=== PATIENT | male | born 1935 | race Two or more races ===

== ENCOUNTER 2020-06-18 17:46 | Inpatient (IN) | payer OTHER ==
[~2020-06-18] VITALS: Ht 177.8 cm; Wt 84.8 kg
[2020-06-18 18:50] LABS: MONOCYTES # (AUTO) 0.5 K/uL (2.0-10.0); NEUTROPHILS # (AUTO) 1.4 K/uL (1.8-8.9); NEUTROPHILS % (AUTO) 63.8 % (38.5-71.5); WHITE BLOOD COUNT (AUTO) 2.2 K/uL (3.6-10.2)
[2020-06-18 18:57] LABS: BASOPHILS % (AUTO) 0.3 % (0.0-2.0); HEMATOCRIT 43.4 % (36.7-47.1); HEMOGLOBIN 14.6 g/dL (12.5-16.3); LYMPHOCYTES # (AUTO) 0.3 K/uL (20.0-40.0); LYMPHOCYTES % (AUTO) 14.8 % (20.5-51.5); MEAN CORPUSCULAR HEMOGLOBIN 29.9 uug (23.8-33.4); MEAN CORPUSCULAR HGB CONC 34 g/dL (32.5-36.3); MEAN CORPUSCULAR VOLUME 88.6 fL (73.0-96.2); MONOCYTES % (AUTO) 21.1 % (0.0-11.0); PLATELET COUNT (AUTO) 150 K/uL (152-348)
[2020-06-18 18:58] LABS: CREATININE 1.2 mg/dL (0.6-1.3); POTASSIUM 3.6 mmol/L (3.5-5.1)
[2020-06-18 19:15] LABS: BILIRUBIN,TOTAL 0.7 mg/dL (0.2-1.0); TOTAL PROTEIN, SERUM 6.5 g/dL (6.4-8.2)
[2020-06-18] MEDS ORDERED: MULT1CAP34 PO (19:45)
[2020-06-18] MEDS ORDERED: CYAN10009 PO (19:45)
[2020-06-18] MEDS ORDERED: FINA5TAB3 PO (19:45)
[2020-06-18] MEDS ORDERED: GABA600T PO (19:45)
[2020-06-18] MEDS ORDERED: LOSA100T3 PO (19:45)
[2020-06-18] MEDS ORDERED: TAMS-3 PO (19:45)
[2020-06-18 20:14] LABS: LYMPHOCYTES % (MANUAL) 17 % (20-40); MONOCYTES % (MANUAL) 23 % (2-10); NEUTROPHILS % (MANUAL) 60 % (42-75)
[2020-06-18] MEDS ORDERED: CEFTRIAXONE 1 G in IV DEXTROSE 5% 50 ML IV ONE (20:30)
[2020-06-18] MEDS ORDERED: AZITHROMYCIN IV 500 MG in IV DEXTROSE 5% 250 ML IV ONE (20:30)
[2020-06-18] MEDS ORDERED: CEFTRIAXONE /D5W 50ML IVPB **ER PYXIS IV ONE (20:46)
[2020-06-18] MEDS ORDERED: AZITHROMYCIN 500MG/ D5W 250ML IVPB **ER PYXIS ONLY IV ONE (21:13)
[2020-06-18 21:31] LABS: ABG BASE EXCESS 2.4 mmol/L; ABG HCO3 25.8 mmol/L; ABG PCO2 36.1 mmHg (35.0-45.0); ABG PH 7.472 (7.350-7.450); ABG PO2 87.3 mmHg (75.0-100.0); ABG SITE RIGHT RADIAL; ABG TOTAL HEMOGLOBIN 14.2 G/dL (13.5-18.0); COHb 0.9 % (0.5-1.5); MetHb 0.1 % (0.0-1.5); O2Hb 95.9 % (94.0-97.0); VENT MODE Nasal Cannula
[2020-06-18 21:38] LABS: *BILIRUBIN,URIN NEGATIVE (NEGATIVE); *BLOOD, URINE 2+ (NEGATIVE); *CLARITY,URINE CLOUDY (CLEAR); *COLOR,URINE YELLOW (YELLOW); *KETONES,URINE 1+ (NEGATIVE); *UROBILINOGEN,URINE 0.2 E.U./dl (NORMAL); LEUKOCYTE ESTERASE ,URINE NEGATIVE (NEGATIVE); NITRITE, URINE NEGATIVE (NEGATIVE); UGLUCOSE NEGATIVE (NEGATIVE)
[2020-06-18 23:03] LABS: BACTERIA,URINE MANY /HPF (NONE SEEN); SQUAMOUS EPITHELIAL CELL,UR FEW /HPF (NONE SEEN); WBC,URINE 20-50 /HPF (0-3)
--- NOTE | 2020-06-19 00:43 | NUR ---
Pt. admitted to Telemetry, under care of Dr. Darshan Machado. Diagnosis: Pneumonia/Respiratory Insufficiency Belongs List completed
--- NOTE | 2020-06-19 02:10 | NUR ---
Patient transferred upstairs to 3rd floor.
[2020-06-19 02:15] VITALS: BP 147/75
--- NOTE | 2020-06-19 02:15 | NUR ---
Received pt from ED via gurnadia. No s/s of acute distress noted. Pt on 5L NC with SpO2 @ 93%, denies SOB. desk monitor in place. Left wrist IV patent and in place. Bed locked and low. Safety measures and isolation precautions in place.
[2020-06-19] MEDS ORDERED: ACETAMINOPHEN 325 MG TABLET PO PRN (05:00)
[2020-06-19] MEDS ORDERED: ONDANSETRON 4 MG/2 ML VIAL IV PRN ×2 (05:00→05:30)
[2020-06-19] MEDS ORDERED: DEXTROSE 50% 50 ML DISP.SYRIN IV PRN (05:30)
[2020-06-19] MEDS ORDERED: MORPHINE SULFATE 2 MG/1 ML DISP.SYRIN IV PRN (05:30)
[2020-06-19] MEDS: PANTOPRAZOLE SODIUM 40 MG TABLET.DR PO SCH (06:24)
[2020-06-19] MEDS: BLOOD SUGAR DIAGNOSTIC 1 EACH STRIP VI SCH ×4 (07:00→21:41)
--- NOTE | 2020-06-19 07:45 | NUR ---
Received PT in bed, awake AO X 3. Can be forgetful, but easily redirected. PT is cooperative and pleasant. Makes needs known to staff and interacts with staff when engaged to. No acute distress or SOB noted. Nurse encourages PT to drink fluids and eat meals. Safety measures provided, call light within reach, bed low and lock. Will continue to monitor.
[2020-06-19 09:14] LABS: BASOPHILS % (AUTO) 0.1 % (0.0-2.0); HEMATOCRIT 42.9 % (36.7-47.1); HEMOGLOBIN 14.1 g/dL (12.5-16.3); LYMPHOCYTES # (AUTO) 0.5 K/uL (20.0-40.0); MEAN CORPUSCULAR HEMOGLOBIN 29.3 uug (23.8-33.4); MEAN CORPUSCULAR HGB CONC 33 g/dL (32.5-36.3); MEAN CORPUSCULAR VOLUME 89.2 fL (73.0-96.2); MONOCYTES # (AUTO) 0.4 K/uL (2.0-10.0); MONOCYTES % (AUTO) 18.1 % (0.0-11.0); NEUTROPHILS # (AUTO) 1.5 K/uL (1.8-8.9); NEUTROPHILS % (AUTO) 61.8 % (38.5-71.5); PLATELET COUNT (AUTO) 152 K/uL (152-348); RED BLOOD CELL COUNT(AUTO) 4.81 MIL/uL (4.06-5.63); WHITE BLOOD COUNT (AUTO) 2.4 K/uL (3.6-10.2)
[2020-06-19 09:50] LABS: CREATININE 1.1 mg/dL (0.6-1.3); POTASSIUM 3.5 mmol/L (3.5-5.1)
[2020-06-19 10:02] LABS: BILIRUBIN,TOTAL 0.5 mg/dL (0.2-1.0); PHOSPHOROUS 3.2 mg/dL (2.5-4.9)
[2020-06-19] MEDS: DEXAMETHASONE SOD PHOSPHATE 10 MG INJ IV SCH (10:26)
[2020-06-19] MEDS: LOSARTAN POTASSIUM 50 MG TABLET PO SCH (10:27)
[2020-06-19] MEDS: FINASTERIDE 5 MG TABLET PO SCH (10:27)
[2020-06-19] MEDS: GABAPENTIN 300 MG CAPSULE PO SCH (10:27)
[2020-06-19] MEDS: MULTIVITAMINS,THERAPEUTIC TABLET PO SCH (10:27)
[2020-06-19] MEDS: Z GUARD REMEDY PASTE 57 GM TUBE TOP SCH ×2 (10:28→21:03)
[2020-06-19] MEDS: CYANOCOBALAMIN 1,000 MCG TABLET PO SCH (10:28)
[2020-06-19] MEDS: ENOXAPARIN SODIUM 40 MG/0.4 ML DISP.SYRIN SQ SCH (10:30)
[2020-06-19 10:40] LABS: THYROID STIMULATING HORMONE 2.101 mIU/mL (0.358-3.740)
[2020-06-19 11:50] VITALS: BP 128/77
[2020-06-19] MEDS: INSULIN REGULAR, HUMAN 300 UNIT/3 ML VIAL SQ PRN ×2 (12:01→16:42)
[2020-06-19 16:00] VITALS: BP 135/77
--- NOTE | 2020-06-19 18:28 | NUR ---
PT in bed, awake AO X 3 with safety measures. Nurse encouraged PT during dinner to finish meal. 50% consumed but completed all fluids on tray. No acute distress or SOB noted. Vitals documented. No complain of pain noted at this time. PT resting in bed. Safety measures provided, call light within reach, bed low and lock. Will endorse to religious educator nurse
[2020-06-19 18:32] LABS: BAND % (MANUAL) 5 % (0-10); LYMPHOCYTES % (MANUAL) 21 % (20-40); MONOCYTES % (MANUAL) 19 % (2-10); NEUTROPHILS % (MANUAL) 55 % (42-75)
--- NOTE | 2020-06-19 19:30 | NUR ---
Pt received sleeping in bed. Does not appear to be in pain or have any respiratory distress at this time. On 15L nonrebreather. SR on monitor. No other issues or concerns at this time.
[2020-06-19 20:15] VITALS: BP 113/58
[2020-06-19] MEDS: CEFTRIAXONE 1 G in IV DEXTROSE 5% 50 ML IV SCH (21:07)
[2020-06-19] MEDS: TAMSULOSIN HCL 0.4 MG CAP.SR.24H PO SCH (21:07)
[2020-06-19] MEDS: AZITHROMYCIN IV 500 MG in IV DEXTROSE 5% 250 ML IV SCH (22:14)
[2020-06-20 00:18] VITALS: BP 114/61
[2020-06-20 04:15] VITALS: BP 116/61
[2020-06-20] MEDS: PANTOPRAZOLE SODIUM 40 MG TABLET.DR PO SCH (06:17)
[2020-06-20] MEDS: BLOOD SUGAR DIAGNOSTIC 1 EACH STRIP VI SCH ×4 (06:32→21:22)
--- NOTE | 2020-06-20 06:41 | NUR ---
Pt slept throughout the night. Denies pain or SOB. On 15L nonrebreather sating at 97%. Safety and comfort provided throughout the night. No other issues or concerns at this time. Will endorse to day shift.
[2020-06-20 06:52] LABS: BASOPHILS % (AUTO) 0.2 % (0.0-2.0); HEMATOCRIT 41.6 % (36.7-47.1); HEMOGLOBIN 13.7 g/dL (12.5-16.3); LYMPHOCYTES # (AUTO) 0.5 K/uL (20.0-40.0); LYMPHOCYTES % (AUTO) 16.9 % (20.5-51.5); MEAN CORPUSCULAR HEMOGLOBIN 29.7 uug (23.8-33.4); MEAN CORPUSCULAR HGB CONC 33 g/dL (32.5-36.3); MEAN CORPUSCULAR VOLUME 90.4 fL (73.0-96.2); MONOCYTES # (AUTO) 0.4 K/uL (2.0-10.0); MONOCYTES % (AUTO) 14.4 % (0.0-11.0); NEUTROPHILS # (AUTO) 1.9 K/uL (1.8-8.9); NEUTROPHILS % (AUTO) 68.5 % (38.5-71.5); PLATELET COUNT (AUTO) 178 K/uL (152-348); WHITE BLOOD COUNT (AUTO) 2.8 K/uL (3.6-10.2)
[2020-06-20 07:30] LABS: CREATININE 1.1 mg/dL (0.6-1.3); POTASSIUM 3.6 mmol/L (3.5-5.1)
--- NOTE | 2020-06-20 07:50 | NUR ---
Received PT in bed, awake AO X 3. Can be forgetful, but easily redirected. PT is cooperative and pleasant. Makes needs known to staff and interacts with staff when engaged to. No acute distress or SOB noted. PT needs encouragement to drink fluids and eat meals. Safety measures provided, call light within reach, bed low and lock. Will continue to monitor.
[2020-06-20] MEDS: DEXAMETHASONE SOD PHOSPHATE 10 MG INJ IV SCH (08:34)
[2020-06-20] MEDS: CYANOCOBALAMIN 1,000 MCG TABLET PO SCH (08:36)
[2020-06-20] MEDS: GABAPENTIN 300 MG CAPSULE PO SCH (08:36)
[2020-06-20] MEDS: FINASTERIDE 5 MG TABLET PO SCH (08:36)
[2020-06-20] MEDS: MULTIVITAMINS,THERAPEUTIC TABLET PO SCH (08:36)
[2020-06-20] MEDS: LOSARTAN POTASSIUM 50 MG TABLET PO SCH (08:39)
[2020-06-20] MEDS: ENOXAPARIN SODIUM 40 MG/0.4 ML DISP.SYRIN SQ SCH (08:41)
[2020-06-20] MEDS: Z GUARD REMEDY PASTE 57 GM TUBE TOP SCH ×2 (08:41→21:12)
[2020-06-20] MEDS: INSULIN REGULAR, HUMAN 300 UNIT/3 ML VIAL SQ PRN ×3 (08:42→21:25)
[2020-06-20 12:04] VITALS: BP 111/59
--- NOTE | 2020-06-20 12:30 | NUR ---
Nurse tried titrating PT on NC. Checked O2 saturation on NC 5L, saturating at 88%. Elevated HOB to high fowlers position. PT sitting up and comfortable in bed. Switched PT back on non-rebreather, saturating at 91%. Spoke with respiratory therapist, John to also monitor PT. Nurse continuing to monitor PT frequently. PT in bed, safety measures provided, call light within reach, bed low and lock
[2020-06-20 16:00] VITALS: BP 114/63
[2020-06-20 18:46] LABS: LYMPHOCYTES % (MANUAL) 15 % (20-40); MONOCYTES % (MANUAL) 15 % (2-10); NEUTROPHILS % (MANUAL) 70 % (42-75)
--- NOTE | 2020-06-20 18:46 | NUR ---
PT in bed, awake AO X 3 with safety measures. Nurse encouraged PT to finish dinner meal. 50% consumed from meal tray but consumed all fluids. No acute distress or SOB noted. Vitals documented. No complain of pain noted at this time. PT resting in bed. Safety measures provided, call light within reach, bed low and lock. Will endorse to line installation supervisor nurse
--- NOTE | 2020-06-20 19:30 | NUR ---
Pt received sleeping in bed. Does not appear to be in any acute distress. On 15L NR and tolerating well. Sating at 96%. Bed is locked and in lowest position. Call light is within reach. No other issues or concerns at this time.
[2020-06-20 20:53] VITALS: BP 106/60
[2020-06-20] MEDS: TAMSULOSIN HCL 0.4 MG CAP.SR.24H PO SCH (21:14)
[2020-06-20] MEDS: CEFTRIAXONE 1 G in IV DEXTROSE 5% 50 ML IV SCH (21:14)
[2020-06-20] MEDS: AZITHROMYCIN IV 500 MG in IV DEXTROSE 5% 250 ML IV SCH (22:19)
[2020-06-21 01:40] VITALS: BP 133/76
[2020-06-21 05:12] VITALS: BP 127/68
--- NOTE | 2020-06-21 06:17 | NUR ---
Pt slept throughout the night with no complaints. Denies pain or difficulty breathing. Sating at 93% at 5L. Safety and comfort provided. Call light is within reach. Will endorse to day shift.
[2020-06-21] MEDS: PANTOPRAZOLE SODIUM 40 MG TABLET.DR PO SCH (06:49)
[2020-06-21] MEDS: BLOOD SUGAR DIAGNOSTIC 1 EACH STRIP VI SCH ×4 (07:00→20:35)
--- NOTE | 2020-06-21 07:00 | NUR ---
Patient awake and able to make needs known. Patient on oxygen via non rebreather mask at 15LPM. Patient has an IV access on his left wrist, 20 gauge, patent and infusing well at 10mls/hr. No signs and symptoms of respiratory distress. Will monitor patient's condition through out the shift.
[2020-06-21 07:33] LABS: BASOPHILS % (AUTO) 0.1 % (0.0-2.0); HEMATOCRIT 43.5 % (36.7-47.1); HEMOGLOBIN 14.5 g/dL (12.5-16.3); LYMPHOCYTES # (AUTO) 0.4 K/uL (20.0-40.0); MEAN CORPUSCULAR HEMOGLOBIN 29.6 uug (23.8-33.4); MEAN CORPUSCULAR HGB CONC 33 g/dL (32.5-36.3); MONOCYTES # (AUTO) 0.5 K/uL (2.0-10.0); MONOCYTES % (AUTO) 13.1 % (0.0-11.0); NEUTROPHILS # (AUTO) 2.8 K/uL (1.8-8.9); NEUTROPHILS % (AUTO) 76.8 % (38.5-71.5); PLATELET COUNT (AUTO) 209 K/uL (152-348); RED BLOOD CELL COUNT(AUTO) 4.88 MIL/uL (4.06-5.63); WHITE BLOOD COUNT (AUTO) 3.6 K/uL (3.6-10.2)
[2020-06-21] MEDS: FINASTERIDE 5 MG TABLET PO SCH (08:51)
[2020-06-21] MEDS: GABAPENTIN 300 MG CAPSULE PO SCH (08:51)
[2020-06-21] MEDS: MULTIVITAMINS,THERAPEUTIC TABLET PO SCH (08:53)
[2020-06-21] MEDS: CYANOCOBALAMIN 1,000 MCG TABLET PO SCH (08:53)
[2020-06-21] MEDS: LOSARTAN POTASSIUM 50 MG TABLET PO SCH (09:00)
[2020-06-21] MEDS: Z GUARD REMEDY PASTE 57 GM TUBE TOP SCH ×2 (09:23→20:22)
[2020-06-21] MEDS: ENOXAPARIN SODIUM 40 MG/0.4 ML DISP.SYRIN SQ SCH (09:27)
--- NOTE | 2020-06-21 09:29 | NUR ---
Medication was not given. Blood pressure is 116/67 with no parameters. Will confirm with sports medicine trainer what parameters to follow.
[2020-06-21] MEDS: DEXAMETHASONE SOD PHOSPHATE 10 MG INJ IV SCH (09:33)
[2020-06-21] MEDS: INSULIN REGULAR, HUMAN 300 UNIT/3 ML VIAL SQ PRN ×4 (09:42→20:39)
[2020-06-21 12:18] VITALS: BP 103/52
[2020-06-21 16:22] VITALS: BP 112/52
--- NOTE | 2020-06-21 18:44 | NUR ---
Patient laying comfortably in bed, awake and able to make needs known. Still on 15LPM oxygen via non rebreather mask. HAs an IV access on Left wrist, patent and infusing well. All medications tolerated well. No signs and symptoms of distress. Laboratory called and informed that patient's Covid PCR test came out positive. Will endorse to night time babysitter nurse.
[2020-06-21] MEDS: TAMSULOSIN HCL 0.4 MG CAP.SR.24H PO SCH (20:21)
[2020-06-21] MEDS: CEFTRIAXONE 1 G in IV DEXTROSE 5% 50 ML IV SCH (20:21)
[2020-06-21 21:22] VITALS: BP 123/72
[2020-06-21] MEDS: AZITHROMYCIN IV 500 MG in IV DEXTROSE 5% 250 ML IV SCH (21:41)
--- NOTE | 2020-06-21 23:18 | NUR ---
Received pt resting in bed. AAO x3. On 15L NRB, no acute distress noted. C/o generalized mild pain, Tylenol PRN and other due meds given as ordered. Accucheck 143, insulin coverage given as per sliding scale. Safety measures maintained. Call light and personal items within reach. Will continue to monitor.
[2020-06-22 01:12] VITALS: BP 137/72
[2020-06-22] MEDS: PANTOPRAZOLE SODIUM 40 MG TABLET.DR PO SCH (06:22)
[2020-06-22] MEDS: BLOOD SUGAR DIAGNOSTIC 1 EACH STRIP VI SCH ×4 (06:38→21:35)
[2020-06-22 06:43] VITALS: BP 134/72
[2020-06-22] MEDS: INSULIN REGULAR, HUMAN 300 UNIT/3 ML VIAL SQ PRN ×3 (08:35→17:16)
[2020-06-22] MEDS: GABAPENTIN 300 MG CAPSULE PO SCH (08:58)
[2020-06-22] MEDS: MULTIVITAMINS,THERAPEUTIC TABLET PO SCH (08:58)
[2020-06-22] MEDS: CYANOCOBALAMIN 1,000 MCG TABLET PO SCH (08:58)
[2020-06-22] MEDS: FINASTERIDE 5 MG TABLET PO SCH (08:58)
[2020-06-22] MEDS: Z GUARD REMEDY PASTE 57 GM TUBE TOP SCH ×2 (08:59→21:36)
[2020-06-22] MEDS: LOSARTAN POTASSIUM 50 MG TABLET PO SCH (08:59)
[2020-06-22] MEDS: DEXAMETHASONE SOD PHOSPHATE 10 MG INJ IV SCH (08:59)
--- NOTE | 2020-06-22 09:00 | NUR ---
PATIENT IS AWAKE ALERT AND AWARE WITH LANGUAGE BARRIER BUT IS ABLE TO MAKE NEEDS KNOWN DENIES PAIN OR DISCOMFORTS AT THIS TIME.REMAIN ON NRM AT 15 LITERS WITH SAT AT 92-93 PERCENT NO SOB CALL LIGHTS AND PERSONAL BELONGINGS ARE WITHIN EASY REACH MADE COMFORTABLE WILL CONTINUE TO OBSERVE..
[2020-06-22] MEDS: ENOXAPARIN SODIUM 40 MG/0.4 ML DISP.SYRIN SQ SCH (09:01)
[2020-06-22 09:06] LABS: BASOPHILS % (AUTO) 0.1 % (0.0-2.0); HEMATOCRIT 42.3 % (36.7-47.1); HEMOGLOBIN 14.2 g/dL (12.5-16.3); LYMPHOCYTES # (AUTO) 0.3 K/uL (20.0-40.0); MEAN CORPUSCULAR HEMOGLOBIN 29.6 uug (23.8-33.4); MEAN CORPUSCULAR HGB CONC 34 g/dL (32.5-36.3); MEAN CORPUSCULAR VOLUME 88.1 fL (73.0-96.2); MONOCYTES # (AUTO) 0.6 K/uL (2.0-10.0); MONOCYTES % (AUTO) 12.2 % (0.0-11.0); NEUTROPHILS # (AUTO) 3.9 K/uL (1.8-8.9); NEUTROPHILS % (AUTO) 81.7 % (38.5-71.5); PLATELET COUNT (AUTO) 218 K/uL (152-348); WHITE BLOOD COUNT (AUTO) 4.8 K/uL (3.6-10.2)
[2020-06-22 09:16] LABS: BILIRUBIN,TOTAL 0.5 mg/dL (0.2-1.0); POTASSIUM 3.9 mmol/L (3.5-5.1); TOTAL PROTEIN, SERUM 5.5 g/dL (6.4-8.2)
[2020-06-22 12:00] VITALS: BP 137/73
[2020-06-22 16:00] VITALS: BP 136/71
--- NOTE | 2020-06-22 18:00 | NUR ---
DR BARTLETT HERE TO SEE PATIENT WITH NEW ORDERS ATTEMPTS TO TITRATE HIS O2 FAILED PATIENT TO REMAIN ON 15 LITERS NON REBREATHER NO S/S OF HYPO/HYPERGLYCEMIC REACTIONS AT THIS TIME.WILL CONTINUE TO OBSERVE.
[2020-06-22 20:00] VITALS: BP 136/67
[2020-06-22] MEDS ORDERED: REMDESIVIR (CHARGED) 200 MG in IV NORMAL SALINE 210 ML IV ONE (20:00)
--- NOTE | 2020-06-22 20:56 | NUR ---
PAtient awake alert and able to make needs known.TETLIN elevated noted with non rebreather mask at 15 % with O2 sat at 92 %.Denies pain , no acute distress noted at this time.Iv on left wrist patent and intact. Administered Remdesivir Iv as ordered no a/r noted. Rocephin and Zithromax IV given as well.Tolerated well.Continue on isolation for precaution.Safety measures in place.Will continue to monitor.VSS pre and post Remdesivir adm.
[2020-06-22] MEDS: TAMSULOSIN HCL 0.4 MG CAP.SR.24H PO SCH (21:36)
[2020-06-22] MEDS: CEFTRIAXONE 1 G in IV DEXTROSE 5% 50 ML IV SCH (22:11)
[2020-06-22] MEDS: AZITHROMYCIN IV 500 MG in IV DEXTROSE 5% 250 ML IV SCH (23:11)
[2020-06-23] VITALS: BP 122/88
[2020-06-23 04:00] VITALS: BP 139/74
--- NOTE | 2020-06-23 05:26 | NUR ---
Patient noted with O2 sat fluctuating from 87%- 84 % .Patient on non rebreather mask 15 LPm with c/o of difficulty breathing .Dr Sexton made aware with new order given STAT ABG and put Patient on high flow.Rt made aware. Will continue to monitor.
[2020-06-23 05:57] LABS: ABG BASE EXCESS 3.4 mmol/L; ABG HCO3 26.5 mmol/L; ABG PCO2 35.8 mmHg (35.0-45.0); ABG PH 7.487 (7.350-7.450); ABG PO2 42.5 mmHg (75.0-100.0); ABG SITE RIGHT RADIAL; ABG TOTAL HEMOGLOBIN 15.9 G/dL (13.5-18.0); MetHb 0.2 % (0.0-1.5); O2Hb 79.6 % (94.0-97.0)
[2020-06-23] MEDS: PANTOPRAZOLE SODIUM 40 MG TABLET.DR PO SCH (06:23)
[2020-06-23] MEDS: BLOOD SUGAR DIAGNOSTIC 1 EACH STRIP VI SCH ×4 (06:26→23:01)
--- NOTE | 2020-06-23 06:48 | NUR ---
Received ABG result and relayed to with O2 sat 90%-89% on high flow 40L FIO2 100% .Dr Sexton ordered to repeat ABG in 2 hours.Noted and carried out.Will endorsed to on coming shift.
[2020-06-23 07:56] LABS: BASOPHILS % (AUTO) 0.1 % (0.0-2.0); HEMATOCRIT 45.1 % (36.7-47.1); HEMOGLOBIN 15.3 g/dL (12.5-16.3); LYMPHOCYTES # (AUTO) 0.4 K/uL (20.0-40.0); LYMPHOCYTES % (AUTO) 6.7 % (20.5-51.5); MEAN CORPUSCULAR HEMOGLOBIN 29.8 uug (23.8-33.4); MEAN CORPUSCULAR HGB CONC 34 g/dL (32.5-36.3); MEAN CORPUSCULAR VOLUME 87.9 fL (73.0-96.2); MONOCYTES # (AUTO) 0.7 K/uL (2.0-10.0); MONOCYTES % (AUTO) 11.2 % (0.0-11.0); NEUTROPHILS # (AUTO) 5.2 K/uL (1.8-8.9); PLATELET COUNT (AUTO) 264 K/uL (152-348); RED BLOOD CELL COUNT(AUTO) 5.13 MIL/uL (4.06-5.63); WHITE BLOOD COUNT (AUTO) 6.4 K/uL (3.6-10.2)
[2020-06-23 08:04] LABS: BILIRUBIN,DIRECT 0.1 mg/dL (0.0-0.2); BILIRUBIN,TOTAL 0.6 mg/dL (0.2-1.0); TOTAL PROTEIN, SERUM 5.8 g/dL (6.4-8.2)
[2020-06-23 08:07] LABS: ABG BASE EXCESS 3.9 mmol/L; ABG HCO3 26.5 mmol/L; ABG PCO2 33.8 mmHg (35.0-45.0); ABG PH 7.512 (7.350-7.450); ABG PO2 52.1 mmHg (75.0-100.0); ABG SITE LEFT BRACHIAL; ABG TOTAL HEMOGLOBIN 15.2 G/dL (13.5-18.0); COHb 1.1 % (0.5-1.5); MetHb 0.3 % (0.0-1.5); O2Hb 87.2 % (94.0-97.0); VENT MODE HIGH FLOW
[2020-06-23 08:15] LABS: CREATININE 1.1 mg/dL (0.6-1.3); POTASSIUM 3.8 mmol/L (3.5-5.1)
[2020-06-23] MEDS: DEXAMETHASONE SOD PHOSPHATE 10 MG INJ IV SCH (08:26)
[2020-06-23] MEDS: GABAPENTIN 300 MG CAPSULE PO SCH (08:26)
[2020-06-23] MEDS: CYANOCOBALAMIN 1,000 MCG TABLET PO SCH (08:26)
[2020-06-23] MEDS: MULTIVITAMINS,THERAPEUTIC TABLET PO SCH (08:26)
[2020-06-23] MEDS: FINASTERIDE 5 MG TABLET PO SCH (08:26)
[2020-06-23] MEDS: LOSARTAN POTASSIUM 50 MG TABLET PO SCH (08:27)
[2020-06-23] MEDS: Z GUARD REMEDY PASTE 57 GM TUBE TOP SCH ×2 (08:27→22:55)
[2020-06-23] MEDS: ENOXAPARIN SODIUM 40 MG/0.4 ML DISP.SYRIN SQ SCH (08:30)
[2020-06-23] MEDS: INSULIN REGULAR, HUMAN 300 UNIT/3 ML VIAL SQ PRN ×3 (08:31→23:02)
--- NOTE | 2020-06-23 09:00 | NUR ---
DR DAVIS HERE SEEN PATIENT REVIEWED THE ABG REPORT WITH NO NEW ORDERS AT THIS TIME REMAIN ON NRM AND HI MUKESH O2 SATS AT 93 PERCENT ALERT VERBALLY RESPONSIVE TALKING MOSTLY IN BULGARIAN BUT DOES UNDERSTAND SOME UPPER SORBIAN MADE COMFORTABLE REMAIN ON COVID ISOLATION AND PRECAUTION NOT IN DISTRESS AT THIS TIME
[2020-06-23 11:04] VITALS: BP 131/72
--- NOTE | 2020-06-23 13:00 | NUR ---
PATIENT REMOVED HIS NASAL CANULLA AND THE NRM SEEM CONFUSED REAPPLIED AND PATIENT INSTRUCTED TO NOT REMOVE THE TUBINGS TO PREVENT RESTRAINTS FROM BEING USED SPOKE TO HIM WITH A SOFTWARE DEVELOPMENT ANALYST AND HE EXPRESSED UNDERSTAND.O2 SAT AT THIS TIME IS 82 PERCENT.
[2020-06-23 15:17] VITALS: BP 122/70
[2020-06-23] MEDS: ACETAMINOPHEN 325 MG TABLET PO PRN (17:21)
[2020-06-23 20:35] VITALS: BP 120/65
[2020-06-23] MEDS ORDERED: AZITHROMYCIN 250 MG TABLET PO SCH (21:00)
[2020-06-23] MEDS: REMDESIVIR (CHARGED) 100 MG in IV NORMAL SALINE 100 ML IV SCH (22:29)
[2020-06-23] MEDS: TAMSULOSIN HCL 0.4 MG CAP.SR.24H PO SCH (22:57)
[2020-06-23] MEDS: CEFTRIAXONE 1 G in IV DEXTROSE 5% 50 ML IV SCH (23:40)
[2020-06-24 00:36] VITALS: BP 144/75
[2020-06-24 04:00] VITALS: BP 141/56
[2020-06-24] MEDS: ACETAMINOPHEN 325 MG TABLET PO PRN (04:44)
[2020-06-24] MEDS: PANTOPRAZOLE SODIUM 40 MG TABLET.DR PO SCH (06:41)
[2020-06-24] MEDS: BLOOD SUGAR DIAGNOSTIC 1 EACH STRIP VI SCH ×4 (06:51→20:53)
[2020-06-24 07:59] LABS: BILIRUBIN,DIRECT 0.2 mg/dL (0.0-0.2); BILIRUBIN,TOTAL 0.6 mg/dL (0.2-1.0); TOTAL PROTEIN, SERUM 5.3 g/dL (6.4-8.2)
[2020-06-24] MEDS: CYANOCOBALAMIN 1,000 MCG TABLET PO SCH (08:57)
[2020-06-24] MEDS: DEXAMETHASONE SOD PHOSPHATE 10 MG INJ IV SCH (08:57)
[2020-06-24] MEDS: MULTIVITAMINS,THERAPEUTIC TABLET PO SCH (08:57)
[2020-06-24] MEDS: FINASTERIDE 5 MG TABLET PO SCH (08:57)
[2020-06-24] MEDS: GABAPENTIN 300 MG CAPSULE PO SCH (08:57)
[2020-06-24] MEDS: LOSARTAN POTASSIUM 50 MG TABLET PO SCH (08:58)
[2020-06-24] MEDS: Z GUARD REMEDY PASTE 57 GM TUBE TOP SCH ×2 (08:58→20:44)
[2020-06-24] MEDS: ENOXAPARIN SODIUM 40 MG/0.4 ML DISP.SYRIN SQ SCH (09:10)
--- NOTE | 2020-06-24 10:00 | NUR ---
PATIENT SEEN AND EXAMINED BY DR BHATT WITH NO NEW ORDERS CONTINUE ON HI FLOW O2 AND NRM ORDERED WITH NO SOB HE IS MORE ALERT TODAY FAIR APPETITE ALL NEEDS ANTICIPATED AND SATISFIED MAX ASSIST FOR ALL ADL REMAIN ON ISOLATION FOR COVID PNEUMONIA MADE COMFORTABLE WILL CONTINUE TO OBSERVE AND PROVIDE COMFORT.
[2020-06-24 11:38] VITALS: BP 139/77
[2020-06-24 16:00] VITALS: BP 139/70
[2020-06-24] MEDS: INSULIN REGULAR, HUMAN 300 UNIT/3 ML VIAL SQ PRN ×2 (16:51→20:58)
--- NOTE | 2020-06-24 18:00 | NUR ---
RESTING WITH O2 ORDERED HAS TENDENCY TO REMOVE THE HI FLOW GEO STATED BOTHERS HIS NOSE ENCOURAGED TO LEAVE IN PLACE ORDERED TO IMPROVE HIS SATURATION EXPRESSED UNDERSTANDING BUT WILL CONTINUE TO OBSERVE.
--- NOTE | 2020-06-24 19:42 | NUR ---
Pt in bed resting, denies SOB or pain at this time. On high flow oxygen. No distress noted. SR on monitor. Call light is within reach. No other issues or concerns at this time.
[2020-06-24 20:00] VITALS: BP 128/73
[2020-06-24] MEDS: REMDESIVIR (CHARGED) 100 MG in IV NORMAL SALINE 100 ML IV SCH (20:43)
[2020-06-24] MEDS: TAMSULOSIN HCL 0.4 MG CAP.SR.24H PO SCH (20:43)
[2020-06-24] MEDS: CEFTRIAXONE 1 G in IV DEXTROSE 5% 50 ML IV SCH (21:54)
[2020-06-25] VITALS: BP 120/69
[2020-06-25] MEDS: ACETAMINOPHEN 325 MG TABLET PO PRN (01:57)
--- NOTE | 2020-06-25 02:45 | NUR ---
Pt began sating at 83-85% on 40L high flow NC and 15L NR. There was an order for bipap. Called RT to place bipap on patient. Now sating at 94%. Denies SOB at this time. No other issues or concerns.
[2020-06-25] MEDS: PANTOPRAZOLE SODIUM 40 MG TABLET.DR PO SCH (06:07)
[2020-06-25] MEDS: BLOOD SUGAR DIAGNOSTIC 1 EACH STRIP VI SCH ×4 (06:37→22:16)
--- NOTE | 2020-06-25 06:40 | NUR ---
Pt slept intermittently throughout the night. Denies chest pain or SOB. Tolerating Bipap well, sating at 94%. SR on monitor. Bed is locked and in lowest position. Call light is within reach. No other issues or concerns at this time. Will endorse to day shift.
[2020-06-25 06:58] LABS: BASOPHILS % (AUTO) 0.1 % (0.0-2.0); HEMATOCRIT 41.7 % (36.7-47.1); HEMOGLOBIN 14.1 g/dL (12.5-16.3); LYMPHOCYTES # (AUTO) 0.3 K/uL (20.0-40.0); LYMPHOCYTES % (AUTO) 3.2 % (20.5-51.5); MEAN CORPUSCULAR HEMOGLOBIN 30.1 uug (23.8-33.4); MEAN CORPUSCULAR HGB CONC 34 g/dL (32.5-36.3); MONOCYTES # (AUTO) 0.4 K/uL (2.0-10.0); MONOCYTES % (AUTO) 4.4 % (0.0-11.0); NEUTROPHILS # (AUTO) 9.1 K/uL (1.8-8.9); NEUTROPHILS % (AUTO) 92.3 % (38.5-71.5); PLATELET COUNT (AUTO) 231 K/uL (152-348); RED BLOOD CELL COUNT(AUTO) 4.69 MIL/uL (4.06-5.63); WHITE BLOOD COUNT (AUTO) 9.9 K/uL (3.6-10.2)
[2020-06-25 07:27] LABS: BILIRUBIN,DIRECT 0.2 mg/dL (0.0-0.2); BILIRUBIN,TOTAL 0.7 mg/dL (0.2-1.0); MAGNESIUM 1.8 mg/dL (1.8-2.4); PHOSPHOROUS 2.6 mg/dL (2.5-4.9); POTASSIUM 3.9 mmol/L (3.5-5.1); TOTAL PROTEIN, SERUM 5.3 g/dL (6.4-8.2)
--- NOTE | 2020-06-25 07:30 | NUR ---
Received patient awake, alert and oriented times 4, no sign of distress noted at this time. Patient is on 2L of oxygen. Safety precautions are in place. Will continue to monitor.
[2020-06-25] MEDS: CYANOCOBALAMIN 1,000 MCG TABLET PO SCH (09:26)
[2020-06-25] MEDS: DEXAMETHASONE SOD PHOSPHATE 10 MG INJ IV SCH (09:26)
[2020-06-25] MEDS: MULTIVITAMINS,THERAPEUTIC TABLET PO SCH (09:26)
[2020-06-25] MEDS: FINASTERIDE 5 MG TABLET PO SCH (09:26)
[2020-06-25] MEDS: GABAPENTIN 300 MG CAPSULE PO SCH (09:26)
[2020-06-25] MEDS: Z GUARD REMEDY PASTE 57 GM TUBE TOP SCH ×2 (09:27→20:42)
[2020-06-25] MEDS: ENOXAPARIN SODIUM 40 MG/0.4 ML DISP.SYRIN SQ SCH (09:27)
[2020-06-25] MEDS: LOSARTAN POTASSIUM 50 MG TABLET PO SCH (09:34)
--- NOTE | 2020-06-25 10:00 | NUR ---
Patient was placed on high glow oxygen and nonrebreather to take medications and eat breakfast. Patient did not tolerate it well, had be put back on BIPAP. Patient is now back on BIPAP saturating from 95-100%. Will continue to monitor.
[2020-06-25 12:00] VITALS: BP 145/69
[2020-06-25] MEDS: INSULIN REGULAR, HUMAN 300 UNIT/3 ML VIAL SQ PRN ×2 (12:43→22:17)
[2020-06-25 16:00] VITALS: BP 121/67
--- NOTE | 2020-06-25 18:47 | NUR ---
Patient is resting in bed. No sign of distress noted at this time. Gave all medications as ordered. Patient is tolerating BIPAP well. safety precautions in place. Will endorse to the oncoming nurse.
[2020-06-25 20:18] VITALS: BP 131/75
[2020-06-25] MEDS: REMDESIVIR (CHARGED) 100 MG in IV NORMAL SALINE 100 ML IV SCH (20:41)
[2020-06-25] MEDS: TAMSULOSIN HCL 0.4 MG CAP.SR.24H PO SCH (20:42)
[2020-06-25] MEDS: CEFTRIAXONE 1 G in IV DEXTROSE 5% 50 ML IV SCH (22:15)
--- NOTE | 2020-06-25 22:30 | NUR ---
Received patient in bed, awake, alert and responsive. With BIPAP machine on, tolerated fairly. In no respiratory distress. Patient able to make needs known. Patient received due medications, tolerated well. Kept patient warm, dry, and comfortable. Will continue to monitor patient and attend and anticipate needs.
--- NOTE | 2020-06-26 02:00 | NUR ---
Patient woke up and requested for water. Provided as requested. Replaced on BIPAP after drinking. In no respiratory distress.
[2020-06-26 04:12] VITALS: BP 131/72
[2020-06-26] MEDS: PANTOPRAZOLE SODIUM 40 MG TABLET.DR PO SCH (06:35)
[2020-06-26] MEDS: BLOOD SUGAR DIAGNOSTIC 1 EACH STRIP VI SCH ×4 (06:48→20:50)
--- NOTE | 2020-06-26 07:30 | NUR ---
Received patient awake, alert and oriented times 4, no sign of distress noted at this time. Patient is on BIPAP and saturating at 93-95%. Patient is Syriac speaking but understands some Slovak. Safety precautions are in place. Will continue to monitor.
[2020-06-26 08:07] LABS: HEMATOCRIT 44.5 % (36.7-47.1); HEMOGLOBIN 14.8 g/dL (12.5-16.3); LYMPHOCYTES # (AUTO) 0.2 K/uL (20.0-40.0); LYMPHOCYTES % (AUTO) 1.7 % (20.5-51.5); MEAN CORPUSCULAR HEMOGLOBIN 29.6 uug (23.8-33.4); MEAN CORPUSCULAR HGB CONC 33 g/dL (32.5-36.3); MEAN CORPUSCULAR VOLUME 88.6 fL (73.0-96.2); MONOCYTES # (AUTO) 0.6 K/uL (2.0-10.0); MONOCYTES % (AUTO) 4.8 % (0.0-11.0); NEUTROPHILS # (AUTO) 12.1 K/uL (1.8-8.9); NEUTROPHILS % (AUTO) 93.5 % (38.5-71.5); PLATELET COUNT (AUTO) 190 K/uL (152-348); RED BLOOD CELL COUNT(AUTO) 5.02 MIL/uL (4.06-5.63); WHITE BLOOD COUNT (AUTO) 12.9 K/uL (3.6-10.2)
[2020-06-26 08:34] LABS: BILIRUBIN,DIRECT 0.3 mg/dL (0.0-0.2); BILIRUBIN,TOTAL 0.9 mg/dL (0.2-1.0); CREATININE 1.1 mg/dL (0.6-1.3); PHOSPHOROUS 2.7 mg/dL (2.5-4.9); POTASSIUM 4.1 mmol/L (3.5-5.1); TOTAL PROTEIN, SERUM 5.5 g/dL (6.4-8.2)
[2020-06-26] MEDS: GABAPENTIN 300 MG CAPSULE PO SCH (09:04)
[2020-06-26] MEDS: CYANOCOBALAMIN 1,000 MCG TABLET PO SCH (09:04)
[2020-06-26] MEDS: FINASTERIDE 5 MG TABLET PO SCH (09:04)
[2020-06-26] MEDS: DEXAMETHASONE SOD PHOSPHATE 10 MG INJ IV SCH (09:05)
[2020-06-26] MEDS: MULTIVITAMINS,THERAPEUTIC TABLET PO SCH (09:05)
[2020-06-26] MEDS: LOSARTAN POTASSIUM 50 MG TABLET PO SCH (09:10)
[2020-06-26] MEDS: Z GUARD REMEDY PASTE 57 GM TUBE TOP SCH ×2 (09:11→20:36)
[2020-06-26] MEDS: ENOXAPARIN SODIUM 40 MG/0.4 ML DISP.SYRIN SQ SCH (09:11)
[2020-06-26 10:22] LABS: ABG BASE EXCESS -1.6 mmol/L; ABG HCO3 22.6 mmol/L; ABG PCO2 36.5 mmHg (35.0-45.0); ABG PH 7.409 (7.350-7.450); ABG PO2 57.6 mmHg (75.0-100.0); ABG SITE RIGHT RADIAL; ABG TOTAL HEMOGLOBIN 14.7 G/dL (13.5-18.0); MetHb 0.2 % (0.0-1.5); O2Hb 89.4 % (94.0-97.0); VENT MODE BIPAP
[2020-06-26 11:38] VITALS: BP 115/68
[2020-06-26] MEDS: INSULIN REGULAR, HUMAN 300 UNIT/3 ML VIAL SQ PRN ×3 (13:20→20:42)
[2020-06-26] MEDS: ACETAMINOPHEN 325 MG TABLET PO PRN (15:01)
[2020-06-26 16:00] VITALS: BP 105/58
--- NOTE | 2020-06-26 18:30 | NUR ---
Patient is resting in bed. No sign of distress noted at this time. Gave all medications as ordered. Patient was saturating at 84%, called respiratory therapy to adjust mask and check setting, patient is now saturating at 97%. safety precautions in place. Will endorse to the oncoming nurse.
[2020-06-26 20:12] VITALS: BP 112/67
[2020-06-26] MEDS: TAMSULOSIN HCL 0.4 MG CAP.SR.24H PO SCH (20:36)
[2020-06-26] MEDS: REMDESIVIR (CHARGED) 100 MG in IV NORMAL SALINE 100 ML IV SCH (20:36)
[2020-06-27] VITALS (7 sets, daily range): BP systolic 124–153; BP diastolic 30–86
[2020-06-27] MEDS: PANTOPRAZOLE SODIUM 40 MG TABLET.DR PO SCH (06:24)
[2020-06-27] MEDS: BLOOD SUGAR DIAGNOSTIC 1 EACH STRIP VI SCH ×4 (06:33→21:28)
[2020-06-27 06:39] LABS: BASOPHILS % (AUTO) 0.3 % (0.0-2.0); CREATININE 1.1 mg/dL (0.6-1.3); EOSINOPHILS % (AUTO) 0.1 % (0.0-7.0); HEMATOCRIT 43.3 % (36.7-47.1); HEMOGLOBIN 14.5 g/dL (12.5-16.3); LYMPHOCYTES # (AUTO) 0.2 K/uL (20.0-40.0); LYMPHOCYTES % (AUTO) 1.6 % (20.5-51.5); MAGNESIUM 2.2 mg/dL (1.8-2.4); MEAN CORPUSCULAR HEMOGLOBIN 29.9 uug (23.8-33.4); MEAN CORPUSCULAR HGB CONC 34 g/dL (32.5-36.3); MEAN CORPUSCULAR VOLUME 89.2 fL (73.0-96.2); MONOCYTES # (AUTO) 0.7 K/uL (2.0-10.0); MONOCYTES % (AUTO) 4.8 % (0.0-11.0); NEUTROPHILS % (AUTO) 93.2 % (38.5-71.5); PHOSPHOROUS 2.6 mg/dL (2.5-4.9); PLATELET COUNT (AUTO) 147 K/uL (152-348); POTASSIUM 4.2 mmol/L (3.5-5.1); RED BLOOD CELL COUNT(AUTO) 4.86 MIL/uL (4.06-5.63); WHITE BLOOD COUNT (AUTO) 13.9 K/uL (3.6-10.2)
--- NOTE | 2020-06-27 07:00 | NUR ---
Received patient awake, alert and oriented times 4, no sign of distress noted at this time. Patient is on BIPAP Safety precautions are in place. Will continue to monitor.
[2020-06-27] MEDS: CYANOCOBALAMIN 1,000 MCG TABLET PO SCH (08:07)
[2020-06-27] MEDS: FINASTERIDE 5 MG TABLET PO SCH (08:07)
[2020-06-27] MEDS: MULTIVITAMINS,THERAPEUTIC TABLET PO SCH (08:07)
[2020-06-27] MEDS: GABAPENTIN 300 MG CAPSULE PO SCH (08:07)
[2020-06-27] MEDS: LOSARTAN POTASSIUM 50 MG TABLET PO SCH (08:07)
[2020-06-27] MEDS: DEXAMETHASONE SOD PHOSPHATE 10 MG INJ IV SCH (08:08)
[2020-06-27] MEDS: ENOXAPARIN SODIUM 40 MG/0.4 ML DISP.SYRIN SQ SCH (08:08)
[2020-06-27] MEDS: Z GUARD REMEDY PASTE 57 GM TUBE TOP SCH ×2 (09:30→20:07)
--- NOTE | 2020-06-27 10:00 | NUR ---
PT HEART RATE IS 145 BP IS 130/70/RESP 40 02 SAT IS 85 % MD MADE AWARE AND CALLED THE RAPID RESPOND NEW ORDERS RECEIVED AND NOTED
--- NOTE | 2020-06-27 10:10 | NUR ---
SUMNER SPEAK WITH THE PT DAUGHTER
--- NOTE | 2020-06-27 10:45 | NUR ---
PER MD ORDERS TURN THE PT TO HIS LEFT SIDE
[2020-06-27 10:48] LABS: ABG BASE EXCESS -1.8 mmol/L; ABG PCO2 34.8 mmHg (35.0-45.0); ABG PH 7.418 (7.350-7.450); ABG PO2 44.5 mmHg (75.0-100.0); ABG SITE LEFT BRACHIAL; ABG TOTAL HEMOGLOBIN 14.6 G/dL (13.5-18.0); COHb 1.1 % (0.5-1.5); MetHb 0.2 % (0.0-1.5); O2Hb 81.4 % (94.0-97.0); VENT MODE BIPAP
[2020-06-27] MEDS ORDERED: MORPHINE SULFATE 2 MG/1 ML DISP.SYRIN IV ONE (11:00)
--- NOTE | 2020-06-27 11:01 | NUR ---
PT IS SAYING HE CANNOT BREATH HE FEEL THE CHEST PRESSURE MD MADE AWARE
[2020-06-27] MEDS: INSULIN REGULAR, HUMAN 300 UNIT/3 ML VIAL SQ PRN ×3 (11:40→21:35)
--- NOTE | 2020-06-27 19:30 | NUR ---
Pt received in bed, resting. On bipap sating at 90%. Denies chest pain or discomfort and denies SOB at this time. SR on monitor. Call light is within reach and bed is locked and in lowest position. No other issues or concerns at this time.
[2020-06-27] MEDS: TAMSULOSIN HCL 0.4 MG CAP.SR.24H PO SCH (20:06)
--- NOTE | 2020-06-28 00:30 | NUR ---
Pt in minor distress. Was desating to 83-85%. RT was called and Dmitiry BILINGUAL MANAGER notified. Dmititry stated for pt to be intubated in ER. Was transferred to ER by myself and RT with bipap. Arrived in ER and patient was tachypneic and tachycardic at 115 bpm. Pt was intubated in ER and is now in transition unit.
[2020-06-28 00:46] VITALS: BP 149/76
[2020-06-28] MEDS ORDERED: MIDAZOLAM HCL 2 MG/2 ML VIAL ONE (00:55)
[2020-06-28] MEDS ORDERED: MIDAZOLAM HCL 2 MG/2 ML VIAL IV PRN (01:00)
[2020-06-28] MEDS ORDERED: SUCCINYLCHOLINE CHLORIDE 200 MG/10 ML VIAL IV ONE ×2 (01:00→13:25)
--- NOTE | 2020-06-28 01:03 | NUR ---
Patient was brought in from the 3rd floor to ED d/t hypoxia per primary nurse Mary. Patient was not tolerating bipap, ERMD aware
[2020-06-28] MEDS: PROPOFOL 100 ML IV PRN ×5 (01:10→01:30)
[2020-06-28] MEDS ORDERED: PROPOFOL 100 ML ONE ×6 (01:10→21:44)
--- NOTE | 2020-06-28 01:10 | NUR ---
Vent settings as follows: AC, TV600, RR14, Peep 5, ET tube 7.5 25cm at the lip
[2020-06-28] MEDS ORDERED: DILTIAZEM HCL 25 MG IV IV ONE (01:15)
--- NOTE | 2020-06-28 01:15 | NUR ---
Daughter Milly called and notified of patient's status.
[2020-06-28] MEDS ORDERED: DILTIAZEM HCL 25 MG IV ONE (01:17)
[2020-06-28] MEDS ORDERED: AMIODARONE HCL 150 MG/3 ML VIAL IV ONE ×2 (01:28→01:37)
[2020-06-28] MEDS: AMIODARONE HCL IV 150 MG in IV DEXTROSE 5% 100 ML IV ONE ×2 (01:30→01:37)
[2020-06-28] MEDS ORDERED: AMIODARONE HCL IV 900 MG in IV DEXTROSE 5% 500 ML IV ONE (01:30)
--- NOTE | 2020-06-28 01:40 | NUR ---
Amiodarone drip started at 0140
[2020-06-28] MEDS ORDERED: NOREPINEPHRINE BITARTRATE 8 MG in IV NORMAL SALINE 250 ML IV ONE (02:00)
[2020-06-28 02:01] LABS: ABG BASE EXCESS -3.7 mmol/L; ABG HCO3 24.1 mmol/L; ABG PCO2 54.6 mmHg (35.0-45.0); ABG PH 7.263 (7.350-7.450); ABG PO2 86.8 mmHg (75.0-100.0); ABG SITE RIGHT RADIAL; ABG TOTAL HEMOGLOBIN 15.1 G/dL (13.5-18.0); COHb 1.3 % (0.5-1.5); MetHb 0.2 % (0.0-1.5); O2Hb 93.3 % (94.0-97.0); VENT MODE VENT - A/C; VT, ABG 600 mL
[2020-06-28] MEDS ORDERED: NOREPINEPHRINE BITARTRATE 4 MG/4 ML VIAL IV ONE (02:10)
--- NOTE | 2020-06-28 03:30 | NUR ---
Patient turned and repositioned Addendum: 06/28/20 at 0437 by BPARENTELA on left side
--- NOTE | 2020-06-28 05:30 | NUR ---
Turned and repositioned patient on right side
--- NOTE | 2020-06-28 06:35 | NUR ---
Per Qian Charge nurse 3rd floor attending MD aware of patient being transferred to ED
--- NOTE | 2020-06-28 06:36 | NUR ---
levophed increased to 0.2mcg/kg/min to keep SBP >[address] Anderson
[2020-06-28] MEDS: PANTOPRAZOLE SODIUM 40 MG TABLET.DR PO SCH (07:00)
--- NOTE | 2020-06-28 07:21 | NUR ---
PT IS IN BED #1A. NO S/S OF ACUTE DISTRESS AT THIS TIME. CONTINUE TO MONITOR THE PT.
[2020-06-28] MEDS: BLOOD SUGAR DIAGNOSTIC 1 EACH STRIP VI SCH ×4 (07:42→21:34)
[2020-06-28] MEDS: INSULIN REGULAR, HUMAN 300 UNIT/3 ML VIAL SQ PRN ×4 (07:48→21:40)
--- NOTE | 2020-06-28 07:48 | NUR ---
DR HUDSON WAS CALLED FOR ORDERS OF LEVOPHED , AMIODARONE, AND PROPOFOL.
[2020-06-28] MEDS ORDERED: INSULIN REGULAR, HUMAN 300 UNIT/3 ML VIAL ONE (07:50)
[2020-06-28 08:24] LABS: HEMATOCRIT 44.7 % (36.7-47.1); HEMOGLOBIN 14.6 g/dL (12.5-16.3); LYMPHOCYTES # (AUTO) 0.3 K/uL (20.0-40.0); MEAN CORPUSCULAR HEMOGLOBIN 30.1 uug (23.8-33.4); MEAN CORPUSCULAR HGB CONC 33 g/dL (32.5-36.3); MEAN CORPUSCULAR VOLUME 91.7 fL (73.0-96.2); MONOCYTES # (AUTO) 1.6 K/uL (2.0-10.0); MONOCYTES % (AUTO) 6.1 % (0.0-11.0); NEUTROPHILS # (AUTO) 25.1 K/uL (1.8-8.9); NEUTROPHILS % (AUTO) 92.9 % (38.5-71.5); PLATELET COUNT (AUTO) 187 K/uL (152-348); RED BLOOD CELL COUNT(AUTO) 4.87 MIL/uL (4.06-5.63)
[2020-06-28] MEDS ORDERED: NOREPINEPHRINE BITARTRATE 8 MG in IV DEXTROSE 5% 250 ML IV ONE (08:30)
[2020-06-28 08:39] LABS: CARBON DIOXIDE 26 mmol/L (21-32); CHLORIDE 104 mmol/L (98-107); CREATININE 1.6 mg/dL (0.6-1.3); GLUCOSE 236 mg/dL (74-106); MAGNESIUM 2.6 mg/dL (1.8-2.4); PHOSPHOROUS 5.7 mg/dL (2.5-4.9); POTASSIUM 4.9 mmol/L (3.5-5.1); UREA NITROGEN, BLOOD 60 mg/dL (7-18)
[2020-06-28 08:43] LABS: ABG BASE EXCESS -2.9 mmol/L; ABG HCO3 24.3 mmol/L; ABG PCO2 51.9 mmHg (35.0-45.0); ABG PH 7.289 (7.350-7.450); ABG PO2 87.4 mmHg (75.0-100.0); ABG SITE RIGHT RADIAL; ABG TOTAL HEMOGLOBIN 15.1 G/dL (13.5-18.0); COHb 1.4 % (0.5-1.5); MetHb 0.3 % (0.0-1.5); O2Hb 94.5 % (94.0-97.0); VENT MODE VENT - A/C; VT, ABG 600 mL
[2020-06-28] MEDS ORDERED: AMIODARONE HCL IV 450 MG in IV DEXTROSE 5% 250 ML IV PRN (08:45)
[2020-06-28] MEDS ORDERED: NOREPINEPHRINE BITARTRATE 8 MG in IV NORMAL SALINE 242 ML IV PRN ×4 (08:45)
[2020-06-28] MEDS ORDERED: ASPIRIN 81 MG TAB.CHEW PO SCH (09:00)
[2020-06-28] MEDS: FINASTERIDE 5 MG TABLET PO SCH (09:00)
[2020-06-28] MEDS: CYANOCOBALAMIN 1,000 MCG TABLET PO SCH (09:00)
[2020-06-28] MEDS: GABAPENTIN 300 MG CAPSULE PO SCH (09:00)
[2020-06-28] MEDS: MULTIVITAMINS,THERAPEUTIC TABLET PO SCH (09:00)
[2020-06-28] MEDS: Z GUARD REMEDY PASTE 57 GM TUBE TOP SCH ×2 (09:09→21:30)
[2020-06-28] MEDS: DEXAMETHASONE SOD PHOSPHATE 10 MG INJ IV SCH (09:13)
[2020-06-28] MEDS: ENOXAPARIN SODIUM 40 MG/0.4 ML DISP.SYRIN SQ SCH (09:14)
[2020-06-28] MEDS ORDERED: ENOXAPARIN SODIUM 40 MG/0.4 ML DISP.SYRIN SQ ONE (09:15)
[2020-06-28] MEDS ORDERED: DEXAMETHASONE SOD PHOSPHATE 10 MG INJ ONE (09:15)
--- NOTE | 2020-06-28 09:45 | NUR ---
DR ANAYA EVALUATED THE PT.
--- NOTE | 2020-06-28 16:03 | NUR ---
UNABLE TO INSERT F/C. DR HUDSON NOTIFIED.
[2020-06-28] MEDS ORDERED: GLUCERNA 1.2 1000ML LIQUID GT PRN (16:30)
[2020-06-28 17:45] LABS: ABG BASE EXCESS -2.5 mmol/L; ABG HCO3 22.2 mmol/L; ABG PCO2 38.3 mmHg (35.0-45.0); ABG PH 7.381 (7.350-7.450); ABG PO2 66.7 mmHg (75.0-100.0); ABG SITE RIGHT RADIAL; ABG TOTAL HEMOGLOBIN 14.9 G/dL (13.5-18.0); COHb 1.2 % (0.5-1.5); MetHb 0.2 % (0.0-1.5); O2Hb 91.9 % (94.0-97.0); VENT MODE VENT - A/C; VT, ABG 550 mL
--- NOTE | 2020-06-28 17:56 | NUR ---
PICC LINE WITH 3 LUMENS WAS INSERTED IN LEFT UPPER ARM BY PICC LINE RN. PT TOLERATED TO PROCEDURE WITHOUT COMPLICATIONS. CONTINUE TO MONITOR THE PT.
--- NOTE | 2020-06-28 19:06 | NUR ---
REPORT GIVEN TO BLANK GROVER SENIOR QUALITY ENGINEER.
--- NOTE | 2020-06-28 20:31 | NUR ---
no signs of acute distress noted at this time
--- NOTE | 2020-06-28 23:00 | NUR ---
MD Perez paged for new orders regarding amiodarone drip continue order, awaiting return call
--- NOTE | 2020-06-29 02:10 | NUR ---
GALEN Roy paged at this time to report changes in patient, awaiting return call
--- NOTE | 2020-06-29 02:25 | NUR ---
Spoke with GALEN Roy, instructed to continue amiodarone drip as ordered and to report results of stat ABG once resulted
[2020-06-29] MEDS ORDERED: AMIODARONE HCL 150 MG/3 ML VIAL IV ONE (02:29)
[2020-06-29 02:38] LABS: ABG BASE EXCESS -4.1 mmol/L; ABG HCO3 24.8 mmol/L; ABG PCO2 61.5 mmHg (35.0-45.0); ABG PH 7.223 (7.350-7.450); ABG PO2 52.4 mmHg (75.0-100.0); ABG SITE RIGHT RADIAL; MetHb 0.3 % (0.0-1.5); O2Hb 83.5 % (94.0-97.0); VENT MODE VENT - A/C; VT, ABG 550 mL
[2020-06-29] MEDS ORDERED: PROPOFOL 100 ML ONE ×2 (02:57→07:07)
[2020-06-29] MEDS ORDERED: TOCILIZUMAB 400 MG in IV NORMAL SALINE 80 ML IV ONE (03:00)
--- NOTE | 2020-06-29 03:17 | NUR ---
unable to administer Actemra 400 mg IV as prescribed by MD Farah due to unavailability of drug at this time, melter supervisor open hearth furnace made aware and states medication cannot be found in the night locker
--- NOTE | 2020-06-29 03:39 | NUR ---
MD Doss paged with reportsof patient elevated heart rate of 130's-140's. MD Doss states that the patient's elevated heart rate is due to lack of oxygenation and to continue to monitor
--- NOTE | 2020-06-29 04:08 | NUR ---
Levophed increased from 0.2 mcg to 0.4 mcg per MD Mcknight orders Diprovan increased from 45 mcg to 50 mcg per MD Mcknight orders B/P noted at 95/55, 128 heart rate 0xygen noted at 90%, RT on standby
--- NOTE | 2020-06-29 05:00 | NUR ---
Levophed increased to 0.7 mcg at this time
[2020-06-29] MEDS ORDERED: NOREPINEPHRINE BITARTRATE 4 MG/4 ML VIAL IV ONE ×3 (05:24→08:18)
[2020-06-29] MEDS ORDERED: PHENYLEPHRINE IV 100 MG in IV NORMAL SALINE 240 ML IV PRN (05:45)
[2020-06-29] MEDS ORDERED: PHENYLEPHRINE 10 MG/1 ML VIAL ONE ×2 (05:53→05:58)
--- NOTE | 2020-06-29 06:51 | NUR ---
Report anne Peace RN
[2020-06-29 06:53] VITALS: BP 89/46
--- NOTE | 2020-06-29 07:17 | NUR ---
PT IS IN BED 1A. NO S/S OF ACUTE DISTRESS AT THIS TIME. CONTINUE TO MONITOR THE PT.
--- NOTE | 2020-06-29 07:41 | NUR ---
RESPIRATORY THERAPIST WAS CALLED TO RE-CHECK PT's CONDITION.
[2020-06-29 07:49] LABS: ALANINE AMINOTRANSFERASE 184 U/L (16-63); ALKALINE PHOSPHATASE 91 U/L (50-136); ASPARTATE AMINOTRANSFERASE 75 U/L (15-37); BILIRUBIN,TOTAL 1.4 mg/dL (0.2-1.0); CARBON DIOXIDE 22 mmol/L (21-32); CHLORIDE 108 mmol/L (98-107); CREATINE KINASE, TOTAL 201 U/L (39-308); CREATININE 2.6 mg/dL (0.6-1.3); GLUCOSE 159 mg/dL (74-106); MAGNESIUM 2.6 mg/dL (1.8-2.4); PHOSPHOROUS 7.1 mg/dL (2.5-4.9); POTASSIUM 4.7 mmol/L (3.5-5.1); TOTAL PROTEIN, SERUM 5.3 g/dL (6.4-8.2); UREA NITROGEN, BLOOD 67 mg/dL (7-18)
--- NOTE | 2020-06-29 07:54 | NUR ---
Dr Chaudhari was notified about changes in pt'S heart rythm. He is going to evaluate pt in am.
--- NOTE | 2020-06-29 08:04 | NUR ---
DR BHATT WAS NOTIFIED ABOUT CHANGES IN PT's CONDITION AND CRITICAL LABS RESULTS.
[2020-06-29 08:11] LABS: BASOPHILS % (AUTO) 0.2 % (0.0-2.0); HEMATOCRIT 48.3 % (36.7-47.1); HEMOGLOBIN 15.3 g/dL (12.5-16.3); LYMPHOCYTES # (AUTO) 0.3 K/uL (20.0-40.0); LYMPHOCYTES % (AUTO) 1.2 % (20.5-51.5); MEAN CORPUSCULAR HEMOGLOBIN 30.2 uug (23.8-33.4); MEAN CORPUSCULAR HGB CONC 32 g/dL (32.5-36.3); MEAN CORPUSCULAR VOLUME 95.6 fL (73.0-96.2); MONOCYTES # (AUTO) 0.2 K/uL (2.0-10.0); MONOCYTES % (AUTO) 1.2 % (0.0-11.0); NEUTROPHILS % (AUTO) 97.4 % (38.5-71.5); PLATELET COUNT (AUTO) 169 K/uL (152-348); RED BLOOD CELL COUNT(AUTO) 5.05 MIL/uL (4.06-5.63); WHITE BLOOD COUNT (AUTO) 20.6 K/uL (3.6-10.2)
[2020-06-29 08:25] LABS: BILIRUBIN,DIRECT 1.6 mg/dL (0.0-0.2); BILIRUBIN,TOTAL 1.5 mg/dL (0.2-1.0)
[2020-06-29 08:26] LABS: TOTAL PROTEIN, SERUM 4.8 g/dL (6.4-8.2)
[2020-06-29] MEDS ORDERED: SODIUM BICARBONATE 8.4% 50 MEQ/50 ML DISP.SYRIN IV ONE (08:30)
[2020-06-29] MEDS ORDERED: CALCIUM CHLORIDE 1 GM/10 ML DISP.SYRIN IV ONE (08:30)
[2020-06-29] MEDS ORDERED: EPINEPHRINE 1:10,000 1 MG/10 ML DISP.SYRIN IV ONE (08:30)
--- NOTE | 2020-06-29 08:43 | NUR ---
[facility] WAS CALLED AT 0818. HIGH QUALITY CPR WAS STARTED BY RN YOVANNY , BLANK ESTRADA, BLANK BALL UNDER DIRECT SUPERVISION OF DR RENAE.
--- NOTE | 2020-06-29 08:47 | NUR ---
PT WAS PRONOUNCED AT [address] RENAE.
[2020-06-29] MEDS ORDERED: ENOXAPARIN SODIUM 40 MG/0.4 ML DISP.SYRIN SQ SCH (09:00)
--- NOTE | 2020-06-29 11:10 | NUR ---
DR BHATT NOTIFIED PT'S YESENIA PHILLIPS ABOUT PT'S . [facility] WAS CALLED BY BLANK HAIRSTON. TALKED TO LILIAN COPPOLA, PT WAS DECLINED, CASE #[id number].
--- NOTE | 2020-06-29 11:17 | NUR ---
[facility] WAS CALLED , SPOKE TO REP. CHAVEZ. PT CASE WAS DECLINED.
--- NOTE | 2020-06-29 11:43 | NUR ---
SPOKE WITH PT's YESENIA PHILLIPS ABOUT WHICH MORTUARY SHE WANTS TO USE. YESENIA STATED THAT SHE WILL CALL US LATER.
--- NOTE | 2020-06-29 15:43 | NUR ---
PT's BODY WAS TRANSFERED TO [facility] ACCORDING [facility] [place] [facility] C[facility] ORDER.
[2020-07-08 15:45] LABS: ALBUMIN 1.7; ALPHA-1-GLOBULIN 0.4; ALPHA-2-GLOBULIN 0.9; BETA GLOBULIN 0.8; GAMMA GLOBULIN 0.7
[2020-07-08 15:46] LABS: A/G RATIO 0.6; GLOBULIN, TOTAL 2.9; M-SPIKE 0.3
== END 2020-06-29 08:33 | disposition expired | DRG 871 ==
LOC: ER 17:46 → TELE3 06-19 01:51 → TRANSITION 06-28 00:47
PROVIDERS: ADMIT Family Medicine; ATTEND Student in an Organized Health Care Education/Training Program
PROC: XW033E5 Introduction of Remdesivir Anti-infective into Peripheral Vein, Percutaneous Approach, New Technology Group 5 (ICD-10-PCS; principal; 2020-06-22)
PROC: 5A09457 Assistance with Respiratory Ventilation, 24-96 Consecutive Hours, Continuous Positive Airway Pressure (ICD-10-PCS; 2020-06-25)
PROC: 5A1945Z Respiratory Ventilation, 24-96 Consecutive Hours (ICD-10-PCS; 2020-06-28)
PROC: 0BH18EZ Insertion of Endotracheal Airway into Trachea, Via Natural or Artificial Opening Endoscopic (ICD-10-PCS; 2020-06-28)
PROC: 05H633Z Insertion of Infusion Device into Left Subclavian Vein, Percutaneous Approach (ICD-10-PCS; 2020-06-28)
PROC: B547ZZA Ultrasonography of Left Subclavian Vein, Guidance (ICD-10-PCS; 2020-06-28)
PROC: 5A12012 Performance of Cardiac Output, Single, Manual (ICD-10-PCS; 2020-06-29)
PROC: XW033H5 Introduction of Tocilizumab into Peripheral Vein, Percutaneous Approach, New Technology Group 5 (ICD-10-PCS; 2020-06-29)
DX: A41.89 Other specified sepsis (principal); U07.1 COVID-19; J12.82 Pneumonia due to coronavirus disease 2019; J96.01 Acute respiratory failure with hypoxia; N17.0 Acute kidney failure with tubular necrosis; R65.21 Severe sepsis with septic shock; D68.69 Other thrombophilia; I45.2 Bifascicular block; N39.0 Urinary tract infection, site not specified; E44.0 Moderate protein-calorie malnutrition; I47.1 Supraventricular tachycardia; H91.90 Unspecified hearing loss, unspecified ear; D69.6 Thrombocytopenia, unspecified; D72.819 Decreased white blood cell count, unspecified; H91.10 Presbycusis, unspecified ear; I48.0 Paroxysmal atrial fibrillation; R73.03 Prediabetes; Z86.73 Personal history of transient ischemic attack (TIA), and cerebral infarction without residual deficits; N40.0 Benign prostatic hyperplasia without lower urinary tract symptoms; E88.09 Other disorders of plasma-protein metabolism, not elsewhere classified; Z68.26 Body mass index [BMI] 26.0-26.9, adult; B96.20 Unspecified Escherichia coli [E. coli] as the cause of diseases classified elsewhere; Z96.653 Presence of artificial knee joint, bilateral; R32 Unspecified urinary incontinence
CPT/HCPCS: 36415; 36600; 70030-TC; 71045; 83605; 83615; 83735; 83970; 84100; 84155; 84165; 84443; 85025; 85610; 85730; 86140; 87040; 87077; 87086; 87400; 93005; 94002; 94003; 94660; A4663; G0378; J0171; J0282; J0330; J0456; J0696; J1100; J1650; J1815; J2250; J2270; J2370; J3262; J3490; J7030; J7050; J7060; U0003